=== PATIENT | male | born 1985 | race Caucasian/White ===

== ENCOUNTER 2017-10-23 11:18 | Emergency (ER) | payer MEDICAID ==
--- NOTE | 2017-10-23 12:54 | US ---
EXAMINATION: Scrotal duplex ultrasound HISTORY: Enlarged testicle COMPARISON: None TECHNIQUE: Grayscale, color Doppler, and spectral Doppler images obtained of the scrotum. FINDINGS: Both the left testicles are normal in size, contour, and echogenicity demonstrating normal color and spectral Doppler flow. No testicular mass is identified. There is a large left hydrocele. P rominence of the left testicular appendage. Small epididymal cysts noted bilaterally. No scrotal wall thickening. IMPRESSION: 1. Large left hydrocele, otherwise grossly unremarkable scrotal ultrasound.
[2017-10-23 13:01] LABS: CHLORIDE,CL 107 mmol/L (98-110); SODIUM,NA 140 mmol/L (136-146)
--- NOTE | 2017-10-23 13:09 | EDM.PDOC ---
ED HPI GENERAL MEDICAL PROBLEM - General Chief Complaint: Genitourinary Problem Stated Complaint: PROBLEMS IN PRIVATE AREA Time Seen by Provider: 10/23/17 11:30 Source of Information: Reports: Patient History Limitations: Reports: No Limitations - History of Present Illness INITIAL COMMENTS - FREE TEXT/NARRATIVE: History of present illness: []Patient had months of increasing left testicular swelling. He denies any pain or difficulty urinating. Review of systems: As per history of present illness and below otherwise all systems reviewed and negative. Past medical history: As per history of present illness and as reviewed below otherwise noncontributory. Surgical history: As per history of present illness and as reviewed below otherwise noncontributory. Social history: No reported history of drug or alcohol abuse. Family history: As per history of present illness and as reviewed below otherwise noncontributory. Physical exam: General: Well developed, well nourished in NAD HEENT: Atraumatic, normocephalic, pupils reactive, negative for conjunctival pallor or scleral icterus, mucous membranes moist, throat clear, neck supple, nontender, trachea midline. Lungs: Clear to auscultation, breath sounds equal bilaterally, chest nontender. Heart: S1S2, regular, negative for clicks, rubs, or JVD. Abdomen: Soft, nondistended, nontender. Negative for masses or hepatosplenomegaly. Negative for costovertebral tenderness. Pelvis: Stable nontender. Genitourinary: Left testicle enlarged no erythema or tenderness to palpation Rectal: Deferred. Extremities: Atraumatic, negative for cords or calf pain. Neurovascular unremarkable. Neuro: Awake, alert, oriented. Cranial nerves II through XII unremarkable. Cerebellum unremarkable. Motor and sensory unremarkable throughout. Exam nonfocal. Diagnostics: []Chest showing large hydrocele left testicle Therapeutics: [] Impression: []Left testicular hydrocele Plan: []Follow-up urology Definitive disposition and diagnosis as appropriate pending reevaluation and review of above. Lower back Pain Score (Numeric/FACES): 8 - Related Data Allergies Allergy/AdvReac Type Severity Reaction Status Date / Time No Known Allergies Allergy Verified 10/23/17 11:32 Home Meds: Home Meds . [No Known Home Meds] 10/23/17 [History] Past Medical History - Past Health History Medical/Surgical History: Denies Medical/Surgical History Social & Family History - Family History Family Medical History: Noncontributory - Tobacco Use Smoking Status *Q: Current Every Day Smoker Years of Tobacco use: 6 Packs/Tins Daily: 0.3 - Caffeine Use Caffeine Use: Reports: None - Alcohol Use Days Per Week of Alcohol Use: 4 Number of Drinks Per Day: 6 Total Drinks Per Week: 24 - Recreational Drug Use Recreational Drug Use: Yes Recreational Drug Type: Reports: Marijuana/Hashish ED ROS GENERAL - Review of Systems Review Of Systems: See Below (see HPI) ED EXAM, RENAL/ - Physical Exam Exam: See Below (See HPI) Course - Vital Signs Last Recorded V/S: Last Vital Signs Temp 97.8 F 10/23/17 11:34 Pulse 111 H 10/23/17 11:34 Resp 16 10/23/17 11:34 BP 141/87 H 10/23/17 11:34 Pulse Ox 97 10/23/17 11:34 - Orders/Labs/Meds Labs: Laboratory Tests 10/23/17 10/23/17 Range/Units 12:24 12:24 WBC 7.58 (4.0-11.0) K/uL RBC 4.71 (4.50-5.90) M/uL Hgb 16.0 (13.0-17.0) g/dL Hct 44.7 (38.0-50.0) % MCV 94.9 (80.0-98.0) fL MCH 34.0 H (27.0-32.0) pg MCHC 35.8 (31.0-37.0) g/dL RDW Std Deviation 42.1 (28.0-62.0) fl RDW Coeff of Juan Daniel 12 (11.0-15.0) % Plt Count 230 (150-400) K/uL MPV 9.90 (7.40-12.00) fL Neut % (Auto) 52.9 (48.0-80.0) % Lymph % (Auto) 36.8 (16.0-40.0) % [place] % (Auto) 7.8 (0.0-15.0) % Eos % (Auto) 1.6 (0.0-7.0) % Baso % (Auto) 0.9 (0.0-1.5) % Neut # (Auto) 4.0 (1.4-5.7) K/uL Lymph # (Auto) 2.8 H (0.6-2.4) K/uL [place] # (Auto) 0.6 (0.0-0.8) K/uL Eos # (Auto) 0.1 (0.0-0.7) K/uL Baso # (Auto) 0.1 (0.0-0.1) K/uL Nucleated RBC % 0.0 /100WBC Nucleated RBCs # 0 K/uL Sodium 140 (136-146) mmol/L Potassium 3.5 (3.5-5.1) mmol/L Chloride 107 (98-110) mmol/L Carbon Dioxide 22 (21-31) mmol/L BUN 11 (6.0-23.0) mg/dL Creatinine 0.9 (0.6-1.5) mg/dL Est Cr Clr Drug Dosing 115.65 mL/min Estimated GFR (MDRD) > 60.0 ml/min Glucose 107 (60-110) mg/dL Calcium 9.1 (8.8-10.8) mg/dL Total Bilirubin 0.5 (0.1-1.5) mg/dL AST 27 (5-40) IU/L ALT 26 (8-54) IU/L Alkaline Phosphatase 78 (40-150) Total Protein 7.3 (6.0-8.0) g/dL Albumin 4.4 (3.5-5.0) g/dL Globulin 2.9 (2.0-3.5) g/dL Albumin/Globulin Ratio 1.5 Departure - Departure Time of Disposition: 13:19 Disposition: Home, Self-Care 01 Condition: Good Clinical Impression: Hydrocele in adult - Discharge Information Referrals: PCP,None [Primary Care Provider] - Forms: ED Department Discharge Additional Instructions: The following information is given to patients seen in the emergency department who are being discharged to home. This information is to outline your options for follow-up care. We provide all patients seen in our emergency department with a follow-up referral. The need for follow-up, as well as the timing and circumstances, are variable depending upon the specifics of your emergency department visit. If you don't have a primary care physician on staff, we will provide you with a referral. We always advise you to contact your personal physician following an emergency department visit to inform them of the circumstance of the visit and for follow-up with them and/or the need for any referrals to a consulting specialist. The emergency department will also refer you to a specialist when appropriate. This referral assures that you have the opportunity for follow-up care with a specialist. All of these measure are taken in an effort to provide you with optimal care, which includes your follow-up. Under all circumstances we always encourage you to contact your private physician who remains a resource for coordinating your care. When calling for follow-up care, please make the office aware that this follow-up is from your recent emergency room visit. If for any reason you are refused follow-up, please contact the [facility] Emergency Department at and asked to speak to the emergency department charge nurse. Follow-up urology [facility] - Urology [address] [place] [id number]
== END 2017-10-23 13:30 | disposition home or self-care (01) ==
LOC: MW.ED 11:18
DX: N43.3 Hydrocele, unspecified (principal); F17.210 Nicotine dependence, cigarettes, uncomplicated
CPT/HCPCS: 36415; 76870; 76870-26; 80053; 85025; 93976; 93976-26; 99284; 99284-25